=== PATIENT | female | born 2000 | race Caucasian/White ===

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

== ENCOUNTER 2023-01-25 11:28 | Inpatient (IN) | payer BC, OTHER ==
[2023-01-25] MEDS ORDERED: Ondansetron 4 MG/2 ML SDV IVPUSH PRN (12:22)
[2023-01-25] MEDS ORDERED: Misoprostol 400 MCG (4 X 100 MCG TAB) RECTAL PRN ×2 (12:22→22:03)
[2023-01-25] MEDS ORDERED: fentaNYL 100 MCG/2 ML SDV IVPUSH PRN (12:22)
[2023-01-25] MEDS ORDERED: Carboprost Tromethamine 250 MCG/1 ML Amp IM PRN ×2 (12:22→22:03)
[2023-01-25] MEDS ORDERED: Sodium Chloride 0.9% 10 ML Syringe FLUSH PRN ×2 (12:22→22:03)
[2023-01-25] MEDS ORDERED: Tranexamic Acid 1,000 MG in Sodium Chloride 0.9% 100 ML IV PRN ×2 (12:22→22:03)
[2023-01-25] MEDS ORDERED: Lidocaine 1% 30 ML SDV INJECT ONE (12:22)
[2023-01-25] MEDS ORDERED: Lactated Ringers 1,000 ML IV ONE (12:22)
[2023-01-25] MEDS ORDERED: Acetaminophen 325 MG Tab PO PRN ×2 (12:22→22:03)
[2023-01-25] MEDS ORDERED: Methylergonovine 0.2 MG/1 ML Amp IM PRN (12:22)
[2023-01-25] MEDS ORDERED: Phenylephrine HCl In 0.9% NaCl 1 MG/10 ML Syringe IVPUSH PRN ×2 (12:26→13:34)
[2023-01-25] MEDS ORDERED: ePHEDrine 50 MG/ML SDV IVPUSH PRN ×2 (12:26→13:34)
[2023-01-25] MEDS ORDERED: Ropivacaine 200 MG in Premix Bag 1 BAG EPIDUR SCH ×2 (12:30→13:45)
[2023-01-25] MEDS ORDERED: Lactated Ringers 1,000 ML IV SCH (12:30)
[2023-01-25] MEDS ORDERED: Oxytocin/Normal Saline 30 UNIT/500 ML BAG IV SCH (12:30)
[2023-01-25 12:39] LABS: HEMATOCRIT 37.5 % (37.0-47.0); HEMOGLOBIN 13.1 g/dL (12.0-16.0); MEAN CORPUSCULAR HEMOGLOBIN 33.5 pg (27.0-34.0); MEAN CORPUSCULAR HGB CONC 34.9 g/dL (33.0-35.0); MEAN CORPUSCULAR VOLUME 95.9 fL (80-100); RED BLOOD CELL COUNT 3.91 10^6/uL (4.2-5.4); WHITE BLOOD CELL COUNT,WBC 11.4 10^3/uL (5.0-10.0)
[2023-01-25] MEDS ORDERED: Bupivacaine 0.25% 10 ML SDV ONE (13:31)
[2023-01-25] MEDS ORDERED: fentaNYL 100 MCG/2 ML SDV ONE (13:31)
[2023-01-25] MEDS ORDERED: Benzocaine/Menthol 20%-0.5% Spray 78 GM Cannister TOP PRN (22:03)
[2023-01-25] MEDS ORDERED: Witch Hazel Medicated Pads 100/Jar TOP PRN (22:03)
[2023-01-25] MEDS ORDERED: Simethicone 80 MG Tab.Chew PO PRN (22:03)
[2023-01-25] MEDS ORDERED: Measles, Mumps & Rubella Vaccine 0.5 ML SDV SUBCUT ONE (22:03)
[2023-01-26] MEDS: Ibuprofen 800 MG Tab PO PRN ×2 (05:56→16:04)
[2023-01-26 07:04] LABS: HEMATOCRIT 33.1 % (37.0-47.0); HEMOGLOBIN 11.6 g/dL (12.0-16.0); MEAN CORPUSCULAR VOLUME 97.1 fL (80-100); RED BLOOD CELL COUNT 3.41 10^6/uL (4.2-5.4); WHITE BLOOD CELL COUNT,WBC 14.2 10^3/uL (5.0-10.0)
[2023-01-26] MEDS: Prenatal Multivitamin with Calcium/Folic Acid/Iron Tab PO SCH (08:07)
[2023-01-27] MEDS: Ibuprofen 800 MG Tab PO PRN ×2 (00:27→08:19)
[2023-01-27] MEDS: Docusate Sodium 100 MG Cap PO PRN ×2 (00:28→08:18)
[2023-01-27] MEDS: Prenatal Multivitamin with Calcium/Folic Acid/Iron Tab PO SCH (08:18)
[2023-01-27 10:45] VITALS: BP 119/72; PULSE 79
== END 2023-01-27 13:30 | disposition home or self-care (01) | DRG 806 ==
LOC: DL.OBCHECK 11:28 → DL.OB 12:43 → OBSVTOIN 21:22 → DL.OB 21:22
PROVIDERS: ADMIT Family Medicine; ATTEND Family Medicine
PROC: 10E0XZZ Delivery of Products of Conception, External Approach (ICD-10-PCS; principal; 2023-01-25)
PROC: 0KQM0ZZ Repair Perineum Muscle, Open Approach (ICD-10-PCS; 2023-01-25)
PROC: 10907ZC Drainage of Amniotic Fluid, Therapeutic from Products of Conception, Via Natural or Artificial Opening (ICD-10-PCS; 2023-01-25)
DX: O70.1 Second degree perineal laceration during delivery (principal); D62 Acute posthemorrhagic anemia; Z37.0 Single live birth; O90.81 Anemia of the puerperium; Z90.49 Acquired absence of other specified parts of digestive tract; Z88.0 Allergy status to penicillin; Z88.1 Allergy status to other antibiotic agents; Z3A.39 39 weeks gestation of pregnancy
CPT/HCPCS: 01967; 36415; 59409; 85027; 90471; 90707; A9270-GY; J2590; J7120